=== PATIENT | female | born 1975 | race African-American/Black ===

== ENCOUNTER 2017-08-08 00:24 | Emergency (ER) | payer SELFPAY ==
[2017-08-08 01:01] LABS: #Basophils 0.1 thou/uL (0.0-0.2); #Eosinphils 0.1 thou/uL (0.0-0.7); #Lymphocytes 3.5 thou/uL (1.20-3.40); #Monocytes 0.6 thou/uL (0.11-0.59); #Neutrophils 3.4 thou/uL (1.40-6.50); %Basophils 1.3 % (0.0-1.0); %Eosinophils 1.1 % (0.0-10.0); %Lymphocytes 45.8 % (21.0-51.0); %Monocytes 8.3 % (0.0-10.0); %Neutrophils 43.6 % (42.0-75.0); Hemoglobin 12.2 g/dL (12.0-16.0); Mean Corpuscular HGB CONC 33.2 g/dL (32.0-36.0); Mean Corpuscular Hemoglobin 28.6 pg (27.0-31.0); Mean Corpuscular Volume 86.1 fl (81.0-99.0); Mean Platelet Volume 6.3 fL (7.4-10.4); Platelet Count 329 thou/uL (130-400); RBC Distribution Width 12.3 % (11.5-14.5); Red Blood Cell (RBC) Count 4.25 mill/uL (4.20-5.40); White Blood Cell (WBC) Count 7.7 thou/uL (4.8-10.8)
[2017-08-08 01:21] LABS: ALT (SGPT) 26 U/L (8-55); AST (SGOT) 18 U/L (5-34); Albumin 3.7 g/dL (3.5-5.0); Alkaline Phosphatase 53 U/L (40-150); Anion Gap 10 mmol/L (10-20); BUN (Urea Nitrogen) 9 mg/dL (7.0-18.7); Bilirubin, Total 0.6 mg/dL (0.2-1.2); Calc. Creatinine Clearance 0 mL/min (70-130); Calcium 9.2 mg/dL (7.8-10.44); Carbon Dioxide 27 mmol/L (22-29); Chloride 103 mmol/L (98-107); Estimated GFR-MDRD Greater than 90; Globulin 3.1 g/dL (2.4-3.5); Glucose 120 mg/dL (70-105); Potassium 3.3 mmol/L (3.5-5.1); Protein, Total 6.8 g/dL (6.0-8.3); Sodium 137 mmol/L (136-145)
[2017-08-08 01:27] LABS: CKMB 0.5 ng/mL (0-6.6); Troponin I Less than 0.010 ng/mL (< 0.028)
[2017-08-08] MEDS ORDERED: Furosemide 40 MG/4 ML VIAL ONE (03:05)
[2017-08-08] MEDS ORDERED: Lisinopril 10 MG TAB ONE (03:56)
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
== END 2017-08-08 06:39 | disposition home or self-care (01) ==
LOC: ERS 00:24
DX: I10 Essential (primary) hypertension (principal); R60.9 Edema, unspecified
CPT/HCPCS: 36415; 71046; 80053; 82553; 83880; 84484; 85025; 93005; 96374; J1940

== ENCOUNTER 2017-10-10 11:06 | Outpatient (CLI) | payer MEDICAID | END 2017-10-10 11:07 | disposition home or self-care (01) | LOC: BICMAMMO 11:06 | DX: Z12.31 Encounter for screening mammogram for malignant neoplasm of breast (principal); Z80.3 Family history of malignant neoplasm of breast; Z85.3 Personal history of malignant neoplasm of breast | CPT/HCPCS: 77067 ==

== ENCOUNTER 2018-03-24 17:42 | Emergency (ER) | payer MEDICAID, SELFPAY | END 2018-03-24 18:24 | disposition home or self-care (01) | LOC: ERS 17:42 | DX: J06.9 Acute upper respiratory infection, unspecified (principal); I10 Essential (primary) hypertension; Z79.899 Other long term (current) drug therapy | CPT/HCPCS: 99283 ==

== ENCOUNTER 2019-09-15 15:36 | Emergency (ER) | payer OTHER ==
[2019-09-15] MEDS ORDERED: Ondansetron ODT 4 MG TAB ONE (16:34)
[2019-09-15] MEDS ORDERED: Acetaminophen 500 MG TAB ONE (16:34)
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
== END 2019-09-15 18:39 | disposition home or self-care (01) ==
LOC: ERS 15:36
DX: S09.90XA Unspecified injury of head, initial encounter (principal); S39.012A Strain of muscle, fascia and tendon of lower back, initial encounter; I10 Essential (primary) hypertension; Z79.899 Other long term (current) drug therapy; V43.62XA Car passenger injured in collision with other type car in traffic accident, initial encounter
CPT/HCPCS: 70450; 72100; Q0162

== ENCOUNTER 2019-10-15 15:09 | Outpatient (CLI) | payer OTHER ==
--- NOTE | 2019-10-15 15:41 | ULT ---
EXAM: Bilateral lower extremity venous ultrasound HISTORY: Bilateral lower extremity pain and edema COMPARISON: None TECHNIQUE: Multiplanar grayscale and color Doppler images were obtained in a bilateral lower extremit y venous ultrasound. Spectral analysis of the Doppler waveforms were performed. FINDINGS: The bilateral common femoral vein, profunda femoral veins, superficial femoral veins, and p opliteal veins are normal in appearance without visible thrombus. These vessels demonstrate normal compression, flow, and augmentation. The bilateral posterior tibial veins and greater saphenous veins are patent without evidence of throm bus. IMPRESSION: No evidence of DVT.
== END 2019-10-15 15:10 | disposition home or self-care (01) ==
LOC: SCSULT 15:09
PROVIDERS: ATTEND Family Medicine
DX: M79.89 Other specified soft tissue disorders (principal)
CPT/HCPCS: 93970

== ENCOUNTER 2020-01-06 06:24 | Emergency (ER) | payer OTHER, SELFPAY ==
[2020-01-06 07:21] LABS: Band 1 % (5-11); Hemoglobin 12.6 g/dL (12.0-16.0); Lymphocytes 68 % (21-51); MDiff Complete? YES; Mean Corpuscular HGB CONC 33.2 g/dL (32.0-36.0); Mean Corpuscular Hemoglobin 28.8 pg (27.0-31.0); Mean Corpuscular Volume 86.8 fL (78.0-98.0); Mean Platelet Volume 6.7 fL (7.4-10.4); Monocytes 7 % (0-10); Neutrophil 24 % (42-75); Platelet Count 345 thou/uL (130-400); RBC Distribution Width 12.8 % (11.5-14.5); Red Blood Cell (RBC) Count 4.36 mill/uL (4.20-5.40); White Blood Cell (WBC) Count 11.6 thou/uL (4.8-10.8)
[2020-01-06 07:26] LABS: ALT (SGPT) 17 U/L (8-55); AST (SGOT) 15 U/L (5-34); Albumin 3.8 g/dL (3.5-5.0); Alkaline Phosphatase 52 U/L (40-110); Anion Gap 13 mmol/L (10-20); BUN (Urea Nitrogen) 15 mg/dL (7.0-18.7); Bilirubin, Total 0.3 mg/dL (0.2-1.2); Calc. Creatinine Clearance 0 mL/min (70-130); Calcium 8.8 mg/dL (7.8-10.44); Carbon Dioxide 27 mmol/L (22-29); Chloride 100 mmol/L (98-107); Estimated GFR-MDRD 62; Globulin 3.2 g/dL (2.4-3.5); Glucose 155 mg/dL (70-105); Sodium 137 mmol/L (136-145)
[2020-01-06] MEDS ORDERED: Meclizine HCl 25 MG TAB ONE (07:32)
[2020-01-06 07:34] LABS: Potassium 2.8 mmol/L (3.5-5.1)
[2020-01-06] MEDS ORDERED: Potassium Chloride 20 MEQ TAB ONE (07:38)
--- NOTE | 2020-01-06 07:44 | RAD ---
Chest one view HISTORY: Dyspnea. COMPARISON: 05/11/2015. FINDINGS: Cardiac silhouette is magnified by projection. Pulmonary vasculature is unremarkable. Mediastinum is midline. No lobar consolidation or evidence of pneumothorax. IMPRESSION : No abnormalities are demonstrated.
== END 2020-01-06 08:13 | disposition home or self-care (01) ==
LOC: ERS 06:24
DX: E87.6 Hypokalemia (principal); I10 Essential (primary) hypertension
CPT/HCPCS: 71045; 80053; 85025; 93005

== ENCOUNTER 2020-08-12 17:30 | Outpatient (CLI) | payer BC | END 2020-08-12 17:31 | disposition home or self-care (01) | LOC: SLEEPLAB 17:30 | PROVIDERS: ATTEND Family Medicine | DX: G47.9 Sleep disorder, unspecified (principal); G47.33 Obstructive sleep apnea (adult) (pediatric); R53.83 Other fatigue; R06.83 Snoring; G47.00 Insomnia, unspecified; I10 Essential (primary) hypertension; E66.9 Obesity, unspecified; Z68.42 Body mass index [BMI] 45.0-49.9, adult | CPT/HCPCS: 95806 ==

== ENCOUNTER 2020-09-11 19:55 | Emergency (ER) | payer BC ==
[2020-09-11] MEDS ORDERED: Ondansetron PF 4 MG/2 ML Vial ONE (20:31)
[2020-09-11 20:41] LABS: #Basophils 0.1 thou/uL (0.0-0.2); #Lymphocytes 5.1 thou/uL (1.20-3.40); #Neutrophils 4.2 thou/uL (1.40-6.50); %Basophils 1.4 % (0.0-1.0); %Eosinophils 0.4 % (0.0-10.0); %Lymphocytes 48.9 % (21.0-51.0); %Monocytes 9.6 % (0.0-10.0); %Neutrophils 39.7 % (42.0-75.0); Hemoglobin 13.3 g/dL (12.0-16.0); Mean Corpuscular HGB CONC 31.9 g/dL (32.0-36.0); Mean Corpuscular Volume 87.8 fL (78.0-98.0); Mean Platelet Volume 6.5 fL (7.4-10.4); Platelet Count 344 thou/uL (130-400); RBC Distribution Width 12.6 % (11.5-14.5); Red Blood Cell (RBC) Count 4.75 mill/uL (4.20-5.40); White Blood Cell (WBC) Count 10.5 thou/uL (4.8-10.8)
[2020-09-11 21:01] LABS: ALT (SGPT) 18 U/L (8-55); AST (SGOT) 12 U/L (5-34); Alkaline Phosphatase 59 U/L (40-110); Anion Gap 12 mmol/L (10-20); BUN (Urea Nitrogen) 11 mg/dL (7.0-18.7); Bilirubin, Total 0.5 mg/dL (0.2-1.2); Calc. Creatinine Clearance 0 mL/min (70-130); Calcium 9.3 mg/dL (7.8-10.44); Carbon Dioxide 29 mmol/L (22-29); Chloride 99 mmol/L (98-107); Globulin 3.7 g/dL (2.4-3.5); Glucose 137 mg/dL (70-105); Potassium 3.4 mmol/L (3.5-5.1); Protein, Total 7.7 g/dL (6.0-8.3); Sodium 137 mmol/L (136-145)
[2020-09-11] MEDS ORDERED: Potassium Chloride 20 MEQ TAB ONE (21:35)
== END 2020-09-11 21:35 | disposition home or self-care (01) ==
LOC: ERS 19:55
DX: R53.81 Other malaise (principal); I10 Essential (primary) hypertension; Z79.899 Other long term (current) drug therapy
CPT/HCPCS: 80053; 84443; 85025; 93005; 96374; J2405

== ENCOUNTER 2021-02-01 14:33 | Emergency (ER) | payer SELFPAY ==
[2021-02-01] MEDS ORDERED: Morphine 4 MG/ML VIAL ONE (15:07)
[2021-02-01] MEDS ORDERED: Ketorolac Tromethamine 30 MG/ML VIAL ONE (15:07)
[2021-02-01] MEDS ORDERED: Silver Sulfadiazine 50 GM TUBE ONE (16:08)
== END 2021-02-01 16:25 | disposition home or self-care (01) ==
LOC: ERS 14:33
DX: T23.201A Burn of second degree of right hand, unspecified site, initial encounter (principal); I10 Essential (primary) hypertension; Z79.899 Other long term (current) drug therapy; X08.8XXA Exposure to other specified smoke, fire and flames, initial encounter
CPT/HCPCS: 16020; 96372; J1885; J2270

== ENCOUNTER 2021-07-20 11:51 | Emergency (ER) | payer SELFPAY | END 2021-07-20 13:53 | disposition home or self-care (01) | LOC: ERS 11:51 | DX: M25.551 Pain in right hip (principal); I10 Essential (primary) hypertension; Z79.899 Other long term (current) drug therapy; W13.3XXA Fall through floor, initial encounter ==

== ENCOUNTER 2023-01-21 09:14 | Outpatient (CLI) | payer BC, OTHER | END 2023-01-21 09:15 | disposition home or self-care (01) | LOC: BICMAMMO 09:14 | PROVIDERS: ATTEND Family Medicine | DX: Z12.31 Encounter for screening mammogram for malignant neoplasm of breast (principal); Z80.3 Family history of malignant neoplasm of breast; Z98.890 Other specified postprocedural states | CPT/HCPCS: 77063; 77067 ==

== ENCOUNTER 2023-03-26 06:11 | Emergency (ER) | payer BC ==
[2023-03-26] MEDS ORDERED: Ibuprofen 800 MG TAB ONE (07:08)
[2023-03-26] MEDS ORDERED: predniSONE 20 MG TAB ONE (07:08)
== END 2023-03-26 09:35 | disposition home or self-care (01) ==
LOC: ERS 06:11
DX: M25.521 Pain in right elbow (principal); I10 Essential (primary) hypertension
CPT/HCPCS: J7512